=== PATIENT | male | born 1970 | race Caucasian/White ===

== ENCOUNTER 2018-04-14 08:40 | Emergency (ER) | payer MEDICAID ==
[~2018-04-14] VITALS: Ht 167.6 cm; Wt 102.1 kg
[2018-04-14 08:52] VITALS: Ht 167.6 cm; Wt 102.1 kg
[2018-04-14 10:04] VITALS: BP 169/102
== END 2018-04-14 10:04 | disposition home or self-care (01) ==
LOC: ED 08:40
DX: G89.29 Other chronic pain (principal); M54.2 Cervicalgia; M54.9 Dorsalgia, unspecified; Z76.0 Encounter for issue of repeat prescription

== ENCOUNTER 2018-06-07 13:35 | Inpatient (IN) | payer MEDICAID ==
[~2018-06-07] VITALS: Ht 167.6 cm; Wt 98.5 kg
[2018-06-07 13:45] VITALS: Ht 167.6 cm; Wt 98.5 kg
[2018-06-07 15:33] LABS: AMPHETAMINE QUAL UR NONE DETECTED (See below)
[2018-06-07 15:43] LABS: BASOPHIL % 0.8 % (0-2); PLATELET COUNT 231 x10^3mcL (130-400); RED CELL DISTRIBUTION WIDTH 13.4 % (11.5-14.5)
[2018-06-07 15:51] LABS: CARBON DIOXIDE 26.8 mmol/L (21-32); CHLORIDE SERUM 107 mmol/L (98-107); CREATININE SERUM 0.8 mg/dL (0.7-1.3); GFR1 > 60 mL/min; GLUCOSE SERUM 104 mg/dL (74-106); POTASSIUM SERUM 3.6 mmol/L (3.5-5.1); SODIUM SERUM 142 mmol/L (136-145)
[2018-06-07 15:58] LABS: ALBUMIN 3.7 g/dL (3.4-5.0); ALKALINE PHOSPHATASE 67 U/L (46-116); ALT/SGPT 80 U/L (16-63); AST/SGOT 64 U/L (15-37); BILIRUBIN TOTAL 0.51 mg/dL (0.20-1.00); CHOLESTEROL 168 mg/dL (<200); TOTAL PROTEIN, SERUM 7.3 g/dL (6.4-8.2)
[2018-06-07 19:23] VITALS: BP 128/85
[2018-06-07 19:51] LABS: CHOLESTEROL/HDL RATIO 3.8; MAGNESIUM 2.1 mg/dL (1.8-2.4); PHOSPHOROUS 2.8 mg/dL (2.5-4.9)
[2018-06-07 19:56] LABS: FREE T4 1.2 ng/dL (0.76-1.46); FREE THYROXINE INDEX 3.6 ug/dL (1.4-4.5); T4(THYROXINE) 10.8 ug/dL (4.7-13.3)
[2018-06-07 19:57] LABS: T3 TOTAL 1.34 ng/mL
[2018-06-07 22:17] VITALS: BP 119/72
[2018-06-07 23:30] LABS: UA SPECIFIC GRAVITY <=1.005 (1.005-1.035); microscopic required? YES; urine erythrocyte TRACE (NEGATIVE)
[2018-06-08 05:48] VITALS: BP 124/96
[2018-06-08 07:34] LABS: CALCIUM 8.4 mg/dL (8.5-10.1); CARBON DIOXIDE 27.7 mmol/L (21-32); CHLORIDE SERUM 103 mmol/L (98-107); CREATININE SERUM 0.9 mg/dL (0.7-1.3); GFR1 > 60 mL/min; GLUCOSE SERUM 88 mg/dL (74-106); SODIUM SERUM 139 mmol/L (136-145)
[2018-06-08 07:42] LABS: BASOPHIL % 1.1 % (0-2); PLATELET COUNT 220 x10^3mcL (130-400)
[2018-06-08 08:11] VITALS: BP 128/89
[2018-06-08 11:51] VITALS: BP 139/89
[2018-06-08 17:48] VITALS: BP 133/97
[2018-06-09 05:58] VITALS: BP 111/81
[2018-06-09 06:57] LABS: BASOPHIL % 1.2 % (0-2); PLATELET COUNT 222 x10^3mcL (130-400); RED CELL DISTRIBUTION WIDTH 13.4 % (11.5-14.5)
[2018-06-09 07:22] LABS: CALCIUM 8.4 mg/dL (8.5-10.1); CARBON DIOXIDE 29.4 mmol/L (21-32); CHLORIDE SERUM 102 mmol/L (98-107); CREATININE SERUM 0.9 mg/dL (0.7-1.3); GFR1 > 60 mL/min; GLUCOSE SERUM 95 mg/dL (74-106); PHOSPHOROUS 3.7 mg/dL (2.5-4.9); POTASSIUM SERUM 4.1 mmol/L (3.5-5.1); SODIUM SERUM 138 mmol/L (136-145)
[2018-06-09 09:23] VITALS: BP 144/94
[2018-06-09 11:48] VITALS: BP 144/94
== END 2018-06-09 12:05 | disposition home or self-care (01) | DRG 52 ==
LOC: ED 13:35 → DU 18:01 → MU 18:01 → DU 19:12
PROVIDERS: Internal Medicine; Specialist
DX: G92 Toxic encephalopathy (principal); F10.129 Alcohol abuse with intoxication, unspecified; F29 Unspecified psychosis not due to a substance or known physiological condition; Y90.6 Blood alcohol level of 120-199 mg/100 ml; Z59.0 Homelessness; Z68.33 Body mass index [BMI] 33.0-33.9, adult
CPT/HCPCS: 83880; 84439; 90658; G0480; J1630; J3486; J7030; Q0092

== ENCOUNTER 2019-07-24 09:21 | Emergency (ER) | payer MEDICAID ==
[~2019-07-24] VITALS: Ht 170.2 cm; Wt 86.6 kg
[2019-07-24 09:23] VITALS: Ht 170.2 cm; Wt 86.6 kg
[2019-07-24 10:16] VITALS: BP 135/93
== END 2019-07-24 10:19 | disposition home or self-care (01) ==
LOC: ED 09:21
DX: M54.12 Radiculopathy, cervical region (principal)
CPT/HCPCS: J1885